=== PATIENT | female | born 1990 | race Caucasian/White ===

== ENCOUNTER 2021-01-01 04:15 | Emergency (ER) | payer OTHER, BC, MEDICAID, SELFPAY ==
[2021-01-01 04:19] VITALS: BP 147/85; PULSE 85; RESP 18; TEMP 35.9; O2SAT 99
[2021-01-01 05:48] VITALS: BP 133/77; PULSE 79; RESP 18; O2SAT 100
--- NOTE | 2021-01-01 07:27 | ED.BACK ---
HPI - Back Pain/Injury General Chief Complaint: Back Pain/Injury Stated Complaint: back injury Time Seen by Provider: 01/01/21 07:07 History of Present Illness HPI Narrative: 30 yo female w/ h/o low back pain presents to the ED for the same. Pain started overnight last night while lifting a heavy box at work. Quality is sharp with shocks raidating to all extremities. She has had this pain before. She has not taken anything for the pain. No weakness, numbness, incontinence, fever. Related Data Home Medications Medication Instructions Recorded Confirmed aripiprazole mg 01/01/21 01/01/21 desvenlafaxine succinate mg PO 01/01/21 gabapentin 01/01/21 Allergies Allergy/AdvReac Type Severity Reaction Status Date / Time lamotrigine Allergy Unknown Rash Verified 01/01/21 05:46 silicone Allergy Unknown Rash Verified 01/01/21 05:46 Review of Systems Review of Systems: All systems reviewed & are unremarkable except as noted in HPI and below Constitutional: Constitutional: Denies fever(s) and Denies weakness Cardiovascular: Cardiovascular: Denies chest pain Respiratory: Respiratory: Denies dyspnea Gastrointestinal: Gastrointestinal: Denies abdominal pain and Denies nausea Genitourinary: Genitourinary: Denies hematuria and Denies dysuria Neurologic: Denies syncope, Denies numbness and Denies weakness [facility] Past Medical History Medical History (Updated 01/01/21 @ 09:12 by Roddy Lomeli MD) Bipolar disorder Family History Family History (Updated 09/28/18 @ 10:45 by DOCTOR UNKNOWN) Mother Family history of gallbladder disease Social History Social History Smoking status: Current every day smoker Alcohol intake: never Exam Const: General: healthy appearing, no acute distress and alert Orientation/consciousness: patient oriented x3 HENMT: Head: normal to inspection Neck: Neck: normal visual inspection Resp: Effort & Inspection: normal respiratory effort Auscultation: clear to auscultation bilaterally, no rales, no rhonchi and no wheezes Cardio: Jugular venous distension: no JVD Rate: regular rate Rhythm: regular rhythm Heart sounds: no murmurs Back/Spine/Pelvis: Cervical Spine: cervical ROM normal, No cervical muscular tenderness and No Cervical spine tenderness Thoracic/Lumbar Spine: thoracic and lumbar spine normal to inspection, paraspinal muscle tenderness, No thoracic spinal tenderness, No lumbar spinal tenderness and straight leg raise positive (bilaterally) Skin: General skin exam: normal color Neuro: General: patient oriented x3 and moves all extremities Speech: normal speech Extrem: General: no edema Psych: Appearance: well kempt Affect: normal affect Course Vital Signs Vital signs: Vital Signs Temperature 35.9 C L 01/01/21 04:19 Pulse Rate 85 01/01/21 04:19 Respiratory Rate 18 01/01/21 04:19 Blood Pressure 147/85 H 01/01/21 04:19 Pulse Oximetry 99 01/01/21 04:19 Temperature 35.9 C L 01/01/21 04:19 Pulse Rate 76 01/01/21 08:46 Respiratory Rate 16 01/01/21 08:46 Blood Pressure 140/78 01/01/21 08:46 Pulse Oximetry 100 01/01/21 08:46 MDM - Back Pain/Injury MDM Narrative Medical decision making narrative: history consistent with strain. No concerning findings on exam or history. No indication for emergent imaging. Differential Diagnosis Differential diagnosis: Likely lumbar radiculopathy, sciatica and strain of lumbar region Medical Records Attestation: I reviewed the patient's medical records. Discharge Plan Discharge Clinical Impression: Strain of lumbar region Patient Disposition: Home, Self-Care Condition: Stable Instructions: Antibiotic Form, Acute Low Back Pain (ED), Lower Back Exercises (ED) Prescriptions: New cyclobenzaprine 10 mg tablet 10 mg PO TID PRN (Reason: muscle spasm) Qty: 20 RF: 0 naproxen 500 mg tablet 500 mg PO BID PRN (Reason: pain) Qty: 60 RF: 0 No Action gabapentin 1
[2021-01-01 07:28] VITALS: BP 146/81; PULSE 74; RESP 16; O2SAT 97
--- NOTE | 2021-01-01 07:29 | PC.NURSE ---
care assumed at this time. report from theresa dalton.
[2021-01-01] MEDS: KETOROLAC (*BKC) 60 MG/2 ML VIAL IM (07:44)
[2021-01-01 08:46] VITALS: BP 140/78; PULSE 76; RESP 16; O2SAT 100
== END 2021-01-01 08:48 | disposition home or self-care (01) ==
PROVIDERS: Emergency Provider Emergency Medicine; PCP Internal Medicine
DX: S39.012A Strain of muscle, fascia and tendon of lower back, initial encounter (principal); F31.9 Bipolar disorder, unspecified; F17.200 Nicotine dependence, unspecified, uncomplicated; X50.0XXA Overexertion from strenuous movement or load, initial encounter
CPT/HCPCS: 96372; 99283; J1885

== ENCOUNTER 2023-06-02 10:58 | Emergency (ER) | payer OTHER, SELFPAY ==
--- NOTE | ~2023-06-02 | CT_ITS ---
EXAMINATION: CT soft tissue neck w con DATE: 06/02/2023 12:45 INDICATION: Right cheek and jaw swelling. Dysphagia. TECHNIQUE: Computed tomography (CT) of the neck was performed with 75 mL Omnipaque-350 intravenous co ntrast. Automated exposure control and iterative reconstruction technique were employed. The dose-deepak gth product was 507.32 mGy-cm. COMPARISON: None FINDINGS: Tooth 31 demonstrates a carious lesion and periapical lucencies. There is a 5 x 3 x 4 mm pearce bperiosteal abscess. There is fat stranding in right submandibular space. There is mucosal thickening in the pharynx, right worse than left. There is no sialolith. There is mild right high internal jugu lar chain and right submandibular chain lymphadenopathy, likely reactive. There is mild cervical spon dylosis. IMPRESSION: 1. Carious lesion with periapical lucencies and 5 mm subperiosteal abscess involving tooth 31. 2. Mild right high internal jugular chain and right submandibular chain lymphadenopathy, likely react nito. Reviewed, dictated and finalized at location A. [facility] IMPRESSION: 1. Carious lesion with periapical lucencies and 5 mm subperiosteal abscess invo lving tooth 31. 2. Mild right high internal jugular chain and right submandibular chain lymphad enopathy, likely reactive.
[2023-06-02 11:24] VITALS: BP 152/93; PULSE 121; RESP 18; TEMP 36.8; O2SAT 95
--- NOTE | 2023-06-02 12:05 | ED.DENTAL ---
HPI - Dental/Oral General Chief complaint: Dental/Oral Stated complaint: swollen lymph nodes/?allergic reaction Time Seen by Provider: 06/02/23 11:59 History of Present Illness HPI Narrative: Patient is a 32-year-old female, History of DM, HTN, Bipolar disorder here today with facial pain and difficulty swallowing. She states that about 3 weeks ago she broke her back 2 on the right lower side. She started experiencing some pain and went to see her dentist 2 days ago when they started her on amoxicillin. She called they yesterday due to increasing pain and switched her to clindamycin. Patient notes that over the last few days she has had worsening pain and now is having some swelling beneath her drawn the right side. She notes it is painful to open her mouth as well as swallow. She is able to pass liquids and solids without difficulty but limits these do to help painful it is. She denies fever, she states that she has been experiencing some chills. Denies any drainage from her mouth. Her blood sugars have been running somewhat high for her around 160s. She does believe she took a dose of clindamycin this morning. Related Data Home Medications Medication Instructions Recorded Confirmed aripiprazole 30 mg tablet mg 01/01/21 01/01/21 desvenlafaxine succinate 50 mg mg PO 01/01/21 tablet,extended release 24 hr gabapentin 100 mg capsule 01/01/21 Allergies Allergy/AdvReac Type Severity Reaction Status Date / Time lamotrigine Allergy Unknown Rash Verified 02/10/23 14:46 silicone Allergy Unknown Rash Verified 02/10/23 14:46 Review of Systems Review of Systems: All systems reviewed & are unremarkable except as noted in HPI and below PMFSH Past Medical History Medical History (Updated 06/02/23 @ 15:49 by Odalis Hurtado MD) Bipolar disorder Family History Family History (System 02/10/23 @ 14:46 by Taylor Flores) Mother Family history of gallbladder disease Social History Social History (System 02/10/23 @ 14:46 by Taylor Flores) Smoking status: Current every day smoker Alcohol intake: never Exam Narrative: GENERAL: Well-appearing, well-nourished, and in no acute distress. HEAD: Normocephalic, atraumatic. EYES: PERRLA and EOMI. ENT: Nares clear. Mucous membranes moist. Some trismus present. No posterior pharyngeal erythema or edema. Teeth tender to touch around the right lower side, dental fracture at tooth 32. No obvious large drainable periapical abscess. Fullness present over and beneath the mandible on the right side. NECK: Supple. CHEST: Clear to auscultation. No respiratory distress. HEART: Regular rate and rhythm. Normal peripheral pulses. ABDOMEN: Soft, nontender, nondistended. EXTREMITIES: Normal range of motion. No edema. SKIN: Warm, dry, no rash. NEURO: No focal deficits. Alert and oriented x3. PSYCH: Normal mood and affect. Course Course Emergency Course: Chart review performed. Patient here with dental pain, difficulty swallowing. Triage vitals show tachycardia, otherwise within normal limits. One prior visit in our system for back pain in 2020. Patient seen evaluated. Tender to touch with some fullness over and beneath her mandible on the right side. She is tachycardic. Will do septic workup, IV fluids, CT soft tissue neck with contrast to evaluate for deep space infection. Large dose of IV clindamycin ordered IV as she is only on 300 PO right now. Pain medication ordered. Lab work and imaging reviewed. Mild leukocytosis of 11, Renal function within normal limits, electrolytes grossly normal. Elevated AST, ALT, Alk phos. No abdominal pain, suspect this is likely reactive. Will add on mono spot. CRP elevated at 13.2. Strep negative. CT shows right submandibular lymphadenopathy and a subperiosteal abscess of tooth 31. Will reevaluate after IVF and medications. Patient re-evaluated, feeling quite a bit better. Discussed that she has a dental infection with some overlying swollen lym
[2023-06-02] MEDS: ONDANSETRON INJ 4 MG/2 ML VIAL IV PUSH (12:27)
[2023-06-02 12:37] LABS: Estimated Glomerular Filt Rate > 60
[2023-06-02 12:42] LABS: Basophils Absolute Auto 0.1 K/mm3 (0.0-0.1); Basophils Percent Auto 0.6 % (0.2-1.2); Eosinophils Absolute Auto 0.1 K/mm3 (0-0.3); Eosinophils Percent Auto 0.7 % (0-4.4); Hematocrit 48.2 % (37.0-47.0); Hemoglobin 15.2 g/dL (12.0-15.0); Immature Granulocyte Absolute 0.07 K/mm3 (0.00-0.031); Immature Granulocyte Percent A 0.6 % (0-0.5); Lymphocytes Absolute Auto 2.61 K/mm3 (0.9-3.2); Lymphocytes Percent Auto 23.8 % (18.3-44.2); Mean Corpuscular HGB Conc 31.5 g/dl (32-36); Mean Corpuscular Volume 91.8 fl (80-100); Monocytes Percent Auto 9.3 % (2.6-8.5); Neutrophils Absolute Auto 7.1 K/mm3 (1.3-6.7); Platelet Count Result 257 k/mm3 (150-375); Red Blood Count 5.25 M/mm3 (4.2-5.4); Red Cell Distribution Width 12.1 % (11.5-14.5)
[2023-06-02] MEDS: MORPHINE SULFATE (*CRX) 4 MG/ML INJ IV PUSH (12:43)
[2023-06-02 12:53] LABS: Alanine Aminotransferase 178 U/L (6-35); Albumin Level 4.8 g/dL (3.5-5.1); Alkaline Phosphatase 140 U/L (38-126); Anion Gap 12 mmol/L (8-16); Aspartate Amino Transferase 105 U/L (14-36); Bilirubin,Total 1.1 mg/dL (0.2-1.3); Blood Urea Nitrogen 9 mg/dL (7-17); Calcium 9.4 mg/dL (8.4-10.2); Carbon Dioxide 29 mmol/L (22-30); Chloride 94 mmol/L (98-107); Estimated Glomerular Filt Rate > 60; Glucose 136 mg/dL (65-110); Potassium 3.8 mmol/L (3.4-5.0); Prothrombin Time 13.4 Seconds (11.1-14.7); Sodium 135 mmol/L (137-145)
[2023-06-02] MEDS: CLINDAMYCIN 900 MG/D5W 50 ML 900 MG/50 ML PIGGYBACK 50 MG IVPB (13:00)
[2023-06-02 13:01] LABS: CRP 13.2 mg/dL (<1.0)
[2023-06-02 13:04] LABS: Strep Group A RT-PCR NOT DETECTED (Negative)
--- NOTE | 2023-06-02 13:17 | PC.NURSE ---
MAR is not reflective of fluids received. pt received 3100mL of LR total, not 4,000mL.
--- NOTE | 2023-06-02 14:15 | PC.NURSE ---
sepsis bolus completed 3100mL at 1415.
[2023-06-02 15:10] LABS: Monoscreen Negative (Negative); Negative Monotest Control Negative (Negative); Positive Monotest Control Positive (Positive)
[2023-06-02 16:18] VITALS: BP 133/90; PULSE 106; RESP 18; O2SAT 96
== END 2023-06-02 16:19 | disposition home or self-care (01) ==
PROVIDERS: Emergency Provider Student in an Organized Health Care Education/Training Program; PCP Internal Medicine
DX: K04.7 Periapical abscess without sinus (principal); E11.9 Type 2 diabetes mellitus without complications; I10 Essential (primary) hypertension; F31.9 Bipolar disorder, unspecified
CPT/HCPCS: 36415; 70491; 80053; 81025; 83605; 85025; 85610; 85730; 86140; 86308; 87040; 87651; 96361; 96365; 96375; 99284; J2270; J2405; J7120; Q9967